=== PATIENT | female | born 1965 | race Asian ===

== ENCOUNTER 2022-04-05 12:31 | Emergency (ER) | payer OTHER ==
[~2022-04-05] VITALS: Ht 167.6 cm; Wt 81.0 kg
[2022-04-05 12:44] VITALS: BP 112/70
== END 2022-04-05 16:13 | disposition home or self-care (01) ==
LOC: ER 12:31
DX: U07.1 COVID-19 (principal)
CPT/HCPCS: 71045; 87426; 99284; C9803